=== PATIENT | female | born 1935 | race Caucasian/White ===

== ENCOUNTER → 2016-08-23 | Outpatient (CLI) | payer BC ==
[~2016-08-23] MED LIST: ACET-1311 PO; B-COTAB53 PO; CALCTAB5 PO; CHOL1000 PO; EFF75 PO; MULT-1018 PO; MULT-506 PO; PANT40TA PO; PRLSR20 PO; ZNTT/150 PO
--- NOTE | 2016-08-23 13:00 | DIAGNOSTIC IMAGING REPORT ---
PET/CT SKULL-THIGH CLINICAL HISTORY: SMALL CELL B-CELL LYMPHOMA COMPARISON STUDY: 02/07/2016 FINDINGS: The patient was injected with 15.6 mCi of F-18 labeled FDG. Following the standard induction phase, PET/CT scanning was performed from the skull base to the upper thigh region Within the neck, there are persistent prominent submandibular lymph nodes. The largest measures 11 mm in long axis. This demonstrates an SUV maximum of 1.8. Also evident are prominent bilateral jugulodigastric lymph nodes as well as prominent bilateral supraclavicular lymph nodes. These nodes in general have decreased slightly in size. They are not significantly FDG avid. There is a stable 13 mm right lobe thyroid nodule. Within the thorax, there has been interval decrease in the size of the multiple small axillary lymph nodes. These are not significantly FDG avid. There is been interval decrease in the size of the previous identified mediastinal and hilar lymph nodes. There is mild residual FDG activity with SUV maximum of 3.1 in the right paratracheal region, 3.5 in the right hilar region, and 3 in the left hilar region. There is underlying pulmonary emphysema. There is been interval resolution of previously identified rib activity. The abdomen, there is no evidence of pathologic hepatic or splenic activity. There is no pathologic adrenal gland activity. There is physiologic urinary tract and bowel activity. There is no pathologic nenita activity. There is been interval decrease in the size of the para-aortic and pelvic sidewall lymph nodes. These again are not FDG avid. There is a healing left pubic ramus fracture. IMPRESSION: 1. Slight interval decrease in the size of the previously identified cervical, mediastinal, hilar, axillary, retroperitoneal and pelvic lymphadenopathy. The nodes are again not significantly FDG avid with the exception of mild activity within mediastinal and hilar nodes. Electronically signed by: Karel Luna M.D. 08/23/2016 12:58 PM Dictated Date/Time: 08/23/2016 12:36 PM
== END | disposition home or self-care (01) ==
LOC: C.PET 09:54
PROVIDERS: ATTEND Nurse Practitioner
DX: C83.09 Small cell B-cell lymphoma, extranodal and solid organ sites (principal)

== ENCOUNTER → 2016-09-07 | Outpatient (CLI) | payer BC ==
[2016-09-07 13:33] LABS: ESTIMATED AVERAGE GLUCOSE 114 mg/dl; HA1C FLAG Normal (Normal)
--- NOTE | 2016-09-11 10:11 | CODING QUERY MEDICAL NECESSITY ---
SUPPORTING DIAGNOSIS NEEDED A supporting diagnosis is required for the test/procedure performed on this patient in order for us to be reimbursed by the patient's insurance. Please provide a supporting diagnosis for the following test/procedure listed below next to the test name along with your signature. *If there is no additional diagnosis for this patient that would support the following test/procedure please document that below next to the test/procedure. Test(s)/Procedure(s) that require a supporting diagnosis: DOS 09/07 * Hba1c DIAGNOSIS: Provider Signature: Date: Thank you Jayna Luis Health Information Management Once completed, please kindly fax back to [phone] For questions please call [phone]
== END | disposition home or self-care (01) ==
LOC: C.LAB 14:30
PROVIDERS: ATTEND Orthopaedic Surgery
DX: Z01.812 Encounter for preprocedural laboratory examination (principal)

== ENCOUNTER → 2016-11-09 | Outpatient (CLI) | payer BC, OTHER ==
[~2016-11-09] VITALS: Ht 157.5 cm; Wt 59.6 kg
[2016-11-09 11:22] VITALS: Ht 157.5 cm; Wt 59.6 kg
--- NOTE | 2016-11-09 11:55 | PAT Medication Instructions ---
Service Date Nov 09, 2016. Current Home Medication List Acetaminophen (Tylenol), 650 MG PO 1 time B-Complex W/ Folic Acid (B Complex), 1 TAB PO NOON Calcium (Caltrate), 600 MG PO NOON Cholecalciferol (Vitamin D3), 1 TAB PO BID Multiple Vitamins W/ Minerals (Hair Skin and Nails Formu), 1 TAB PO noon Multivitamin (Multivitamin), 1 TAB PO NOON Pantoprazole (Protonix), 40 MG PO QPM Ranitidine (Zantac), 150 MG PO BID Venlafaxine Hcl (Effexor), 75 MG PO QAM Medication Instructions For Your Scheduled Surgery - Hold the following medications 10 days prior to surgery: Multiple Vitamins W/ Minerals (Hair Skin and Nails Formu), 1 TAB PO noon - Hold the following medications the morning of surgery: Multivitamin (Multivitamin), 1 TAB PO NOON Cholecalciferol (Vitamin D3), 1 TAB PO BID B-Complex W/ Folic Acid (B Complex), 1 TAB PO NOON Calcium (Caltrate), 600 MG PO NOON - Take the following medications the morning of surgery with a sip of water: Venlafaxine Hcl (Effexor), 75 MG PO QAM Ranitidine (Zantac), 150 MG PO BID Acetaminophen (Tylenol), 650 MG PO 1 time (if needed) - Take the following medications as scheduled the night before surgery: Ranitidine (Zantac), 150 MG PO BID Pantoprazole (Protonix), 40 MG PO QPM Cholecalciferol (Vitamin D3), 1 TAB PO BID Acetaminophen (Tylenol), 650 MG PO 1 time If you have any questions please call us at [phone] or [phone] ( [place]) or [phone]
--- NOTE | 2016-11-09 12:35 | DIAGNOSTIC IMAGING REPORT ---
CHEST PREADMISSION(PA/LAT) CLINICAL HISTORY: Preoperative chest COMPARISON STUDY: 10/28/2015 FINDINGS: The cardiac and mediastinal contours remain stable. There is aortic tortuosity/ectasia. There are chronic perihilar interstitial changes. There is no acute parenchymal consolidation. There are multiple thoracic vertebral compression deformities with evidence of prior vertebroplasty.[ IMPRESSION: Chronic interstitial changes. No acute findings. Electronically signed by: Karel Luna M.D. 11/09/2016 12:33 PM Dictated Date/Time: 11/09/2016 12:32 PM
[2016-11-09 13:14] LABS: BASO % 0.3 %; BASO ABS # 0.02 K/uL (0-0.2); IG% 0.1 %; LYMPH % 17.7 %; LYMPH ABS # 1.39 K/uL (1.2-3.4); MEAN CELL VOLUME 64.8 fL (80-100); MEAN CORPUSCULAR HEMOGLOBIN 19.2 pg (25-34); MEAN CORPUSCULAR HGB CONC 29.7 g/dl (32-36); MEAN PLATELET VOLUME 9.4 fL (7.4-10.4); MONO % 5.7 %; NEUT % 75.2 %; PLATELET COUNT 356 K/uL (130-400); RED BLOOD COUNT 4.63 M/uL (4.2-5.4); WHITE BLOOD COUNT 7.85 K/uL (4.8-10.8)
[2016-11-09 13:20] LABS: URINE APPEARANCE CLEAR (CLEAR); URINE BILIRUBIN NEG (NEG); URINE COLOR YELLOW; URINE EPITHELIAL CELL AUTO 20-30 /lpf (0-5); URINE NITRITE NEG (NEG); URINE PH 5.5 (4.5-7.5); URINE SPECIFIC GRAVITY 1.015 (1.000-1.030); UROBILINOGEN NEG (NEG); ZZUR CULT IF INDIC CLEAN CATCH NO
[2016-11-09 13:27] LABS: INR 1.1 (0.9-1.1); PARTIAL THROMBOPLASTIN RATIO 1.1; PROTHROMBIN TIME (PATIENT) 11.5 SECONDS (9.0-12.0)
[2016-11-09 13:29] LABS: MANUAL MICROSCOPIC REQUIRED? NO; REVIEW REQ? NO
[2016-11-09 13:41] LABS: COMPLETE YES; HYPOCHROMIA PRESENT; MICROCYTOSIS PRESENT
[2016-11-09 13:45] LABS: ESTIMATED AVERAGE GLUCOSE 117 mg/dl; HA1C FLAG Normal (Normal)
[2016-11-09 13:48] LABS: BUN/CREATININE RATIO 35.8 (10-20); CREATININE 0.53 mg/dl (0.60-1.20); POTASSIUM 4.6 mmol/L (3.5-5.1)
--- NOTE | 2017-01-03 09:42 | CODING QUERY MEDICAL NECESSITY ---
SUPPORTING DIAGNOSIS NEEDED Dr. Montague, A supporting diagnosis is required for the test/procedure performed on this patient in order for us to be reimbursed by the patient's insurance. Please provide a supporting diagnosis for the following test/procedure listed below next to the test name along with your signature. *If there is no additional diagnosis for this patient that would support the following test/procedure please document that below next to the test/procedure. Test(s)/Procedure(s) that require a supporting diagnosis: * [id number] GLYCATED HEMOGLOBIN DIAGNOSIS: DATE OF SERVICE: 11/09/16 Provider Signature: Date: Thank you Ayaz Lawson [facility] Information Management Once completed, please kindly fax back to [phone] For questions please call [phone]
== END | disposition home or self-care (01) ==
LOC: C.LAB 08:00 → EDSTATUS 11-27 07:46
PROVIDERS: ATTEND Orthopaedic Surgery
DX: Z01.811 Encounter for preprocedural respiratory examination (principal); Z01.810 Encounter for preprocedural cardiovascular examination; Z01.812 Encounter for preprocedural laboratory examination; J84.9 Interstitial pulmonary disease, unspecified; E11.9 Type 2 diabetes mellitus without complications

== ENCOUNTER → 2018-02-26 | Outpatient (CLI) | payer OTHER ==
[~2018-02-26] MED LIST changes: +OPTIRAY 320 IV PRN; -PRLSR20 PO; +RANI150T85 PO; -ZNTT/150 PO
--- NOTE | 2018-02-26 13:51 | DIAGNOSTIC IMAGING REPORT ---
CT NECK WITH INTRAVENOUS CONTRAST HISTORY: LYMPHOMA TECHNIQUE: Multiaxial CT images of the neck performed following the use of intravenous contrast. COMPARISON STUDY: PET CT 08/23/2016. FINDINGS: The visualized brain parenchyma is unremarkable. Increase in size in a 7 mm subpleural nodule abutting the left major fissure within the left lung apex. A few additional linear densities within the lung apices are noted. No suspicious lytic or blastic osseous lesions. Mild mucosal thickening within maxillary sinuses. Stable small focal area of sclerosis within the left mandible. This measures 7 mm. Prevertebral soft tissues and the epiglottis are normal in thickness. A 1.3 cm right thyroid nodule. Extensive submandibular, submental, and bilateral cervical lymphadenopathy which has significantly progressed in the interval. Dominant right submandibular lymph node measures 3.6 x 1.9 cm. This previously measured 1.4 x 0.9 cm. There is also bilateral supraclavicular lymphadenopathy and upper right peritracheal lymphadenopathy. The airway remains patent. The parotid and submandibular glands enhance normally. The carotid arteries are widely patent. Mild to moderate focal narrowing within the proximal basilar artery. IMPRESSION: 1. Significant progression of the lymphadenopathy within the neck as described above. This is consistent with the patient's history of lymphoma. 2. A 1.3 cm right thyroid nodule. 3. Increase in size in the 7 mm subpleural nodule abutting the major fissure within the left lung apex. 4. Mild/moderate focal narrowing within the proximal basilar artery. Electronically signed by: Fredy Chandler M.D. 02/26/2018 1:49 PM Dictated Date/Time: 02/26/2018 1:41 PM
--- NOTE | 2018-02-26 13:59 | DIAGNOSTIC IMAGING REPORT ---
CT (CHEST) THORAX WITH CLINICAL HISTORY: 82 years-old Female presenting with LYMPHOMA, small lymphocytic lymphoma. TECHNIQUE: Multidetector CT imaging of the chest was performed after the administration of intravenous contrast. IV contrast: 93 mL of Optiray 320. A dose lowering technique was used consistent with the principles of ALARA (as low as reasonably achievable). COMPARISON: Chest x-ray from 11/09/2016. CT DOSE (mGy.cm): The estimated cumulative dose is 752.33 mGy.cm. FINDINGS: [employer] topogram: Kyphoplasty changes in the mid thoracic spine. Cholecystectomy clips. Total right hip arthroplasty. On soft tissue windows, heterogeneously enhancing 13 mm nodule in the right lobe of the thyroid. Pathologically enlarged lymph nodes in the bilateral axillae, supraclavicular fossae, mediastinum, and anjel. Additionally, partially visualized upper abdominal and retroperitoneal lymphadenopathy. Much of the mediastinal lymphadenopathy is confluent. Atherosclerosis of the aorta. Normal heart size. Coronary artery and aortic valve calcification. No pericardial or pleural effusion. On lung windows, paramediastinal bandlike opacities extending from the upper lobes to the lung bases, nonspecific and possibly post radiation change. Mosaic attenuation may suggest small airways disease. Perihilar predominant bronchial wall thickening. Respiratory motion artifact limits evaluation of lung parenchyma. Allowing for this, 3 mm solid nodule in the periphery of the right upper lobe (series 9 image 106). Adjacent more inferior similar appearing solid 3 mm nodule (series 9 image 117). Polygonal peripheral solid 6 mm nodule in the right upper lobe (series 9 image 56). Fissural solid 6 mm nodule at the left apex (series 9 image 66). Solid peripheral 3 mm nodule in the left lower lobe (series 9 image 139). Central airways patent. On bone windows, degenerative changes of the spine. Posttreatment changes of kyphoplasty. Several nondisplaced right rib fractures evident, which appear old. Extensive osteoporotic defects of the mid to lower thoracic spine with multilevel compression deformities. IMPRESSION: 1. Extensive lymphadenopathy involving the axillary, supraclavicular fossae, mediastinum, anjel, and upper abdomen. This is consistent with the known diagnosis of lymphoma. 2. Multiple solid pulmonary nodules measuring up to 6 mm. Attention on follow-up. Notably, Fleischner Society criteria do not apply in the setting of malignancy. These are felt unlikely to relate to lymphoproliferative disease. 3. Extensive compression deformities of the thoracic spine in the setting of osteoporosis. 4. Incidental 13 mm right thyroid lobe nodule. Electronically signed by: Randolph Carl M.D. 02/26/2018 1:58 PM Dictated Date/Time: 02/26/2018 1:51 PM
--- NOTE | 2018-02-26 14:00 | DIAGNOSTIC IMAGING REPORT ---
ABDOMEN AND PELVIS CT WITH IV AND ORAL CONTRAST HISTORY: Subsequent treatment strategy. Follow-up exam in a patient with history of lymphoma LYMPHOMA TECHNIQUE: Multiaxial CT images of the abdomen and pelvis were performed following the use of intravenous and oral contrast. A dose lowering technique was utilized adhering to the principles of ALARA. COMPARISON STUDY: CT soft tissue neck and CT chest of same day, PET CT 08/23/2016 and 02/07/2016. FINDINGS: Partially imaged mildly prominent lower axillary lymph nodes are seen bilaterally measuring up to 8 mm on the left, previously measuring up to 4 mm. Subsegmental bibasilar atelectasis/scarring. Lung bases otherwise appear clear. There is no pneumatosis or pneumoperitoneum identified. The imaged inferior cardiac chambers are moderately enlarged. Coronary arterial and aortic annular calcifications are noted. Prior cholecystectomy. Study is mildly motion degraded. Beam Hardening artifact from positioning of the patient's upper extremities also limits the study. Indeterminate 3 mm hypodense lesion of the posterior right hepatic lobe is unchanged suggesting benign etiology such as a hepatic cyst. Liver otherwise appears unremarkable without suspicious mass lesion or intrahepatic biliary ductal dilation. The spleen measures in the upper limits of normal at 13 cm. Moderate generalized pancreatic atrophy. Adrenal glands are unremarkable. Kidneys appear to be within normal limits. There appears be mild dilation about the bilateral ureters without hydronephrosis. Streak artifact from right hip arthroplasty limits evaluation of the distal ureters and pelvic structures. Bladder appears mildly distended. Uterus and adnexa appear unremarkable. Tortuosity with at least moderate mixed plaquing of the abdominal aorta. Bulky conglomerate retroperitoneal adenopathy has markedly progressed from comparison study. Iliac chain and pelvic sidewall adenopathy has also progressed. Index lymph nodes include right pelvic sidewall 2.6 x 1.2 cm lymph node on the right, image 280 series 10, previously measuring 1.9 x 0.7 cm. Enlarged left pelvic sidewall lymph node measures 3.7 x 1.4 cm on image 296 series 10, previously measuring 2.3 x 0.9 cm. Progressive bilateral inguinal chain lymph nodes are also present. Largest lymph node on the right measures 10 mm in short axis. Gastrohepatic and periportal conglomerate adenopathy also appreciated as are bulky enlarged lymph nodes throughout the mesentery. Mesenteric lymph nodes measure up to 2.4 x 1.7 cm on image 257 series 10, not definitively seen on comparison. Bulky retroperitoneal adenopathy the level of the kidneys measures up to 3.0 x 6.5 cm on image 1:30 series 10, previously measuring up to 2.4 x 1.8 cm. No bowel obstruction or focal bowel wall thickening identified. Suggested constipation. Mild generalized body wall edema. Right hip arthroplasty. Demineralized appearance of the bones. Remote healed fractures about the left hemipelvis. There are healing subacute appearing fractures about the right hemipelvis including the superior and inferior pubic rami and right ischium with additional subacute healing fracture about the right acetabulum anteriorly. Chronic appearing left and subacute appearing right sacral sufficiency fractures. Degenerative changes about the bilateral SI joints. Subacute to chronic appearing multiple rib fractures on the right. Multiple age-indeterminate compression deformities about the spine without retropulsion identified. Notably, linear sclerosis involving the mid vertebral body at L4 is suspicious for subacute or acute compression deformity of approximately 20%. Kyphoplasty changes are noted at T9 with extension of the cement material into the T9-T10 intervertebral disc space. Levoscoliosis about the lumbar spine. IMPRESSION: 1. Findings compatible with progressive disease with increased size of bulky and conglomerate lymph nodes about the lower chest, abdomen and pelvis including lower axillary chain, periportal, gastrohepatic, mesenteric, retroperitoneal, iliac chain, pelvic sidewall and inguinal adenopathy. 2. Spleen measures within the upper limits of normal at 13 cm, possibly also reflecting lymphomatous involvement. 3. Subacute healing pelvic fractures of the right hemipelvis including superior and inferior pubic rami and right ischial fractures with additional subacute healing fracture of the right acetabulum. 4. Chronic left and subacute appearing right sacral insufficiency fractures. 5. Additional findings as above. Electronically signed by: Julius Torres M.D. 02/26/2018 1:59 PM Dictated Date/Time: 02/26/2018 1:41 PM
== END | disposition home or self-care (01) ==
LOC: C.CTS 12:37
PROVIDERS: ATTEND Internal Medicine Hematology & Oncology
DX: C83.09 Small cell B-cell lymphoma, extranodal and solid organ sites (principal); R91.8 Other nonspecific abnormal finding of lung field; E04.1 Nontoxic single thyroid nodule

== ENCOUNTER → 2018-03-08 | Outpatient (CLI) | payer OTHER ==
[~2018-03-08] MED LIST changes: -OPTIRAY 320 IV PRN
[2018-03-08 10:33] LABS: HEMATOCRIT 40.2 % (37-47); HEMOGLOBIN 12.9 g/dL (12.0-16.0); MEAN CELL VOLUME 88.4 fL (80-100); MEAN CORPUSCULAR HEMOGLOBIN 28.4 pg (25-34); MEAN CORPUSCULAR HGB CONC 32.1 g/dl (32-36); MEAN PLATELET VOLUME 10.2 fL (7.4-10.4); PLATELET COUNT 182 K/uL (130-400); RED CELL DISTRIBUTION WIDTH CV 14.2 % (11.5-14.5); RED CELL DISTRIBUTION WIDTH SD 45.7 fL (36.4-46.3); WHITE BLOOD COUNT 11.54 K/uL (4.8-10.8)
[2018-03-08 11:03] LABS: ALBUMIN 3.7 gm/dl (3.4-5.0); ALKALINE PHOSPHATASE 142 U/L (45-117); ALT/SGPT 20 U/L (12-78); AST/SGOT 19 U/L (15-37); BLOOD UREA NITROGEN 21 mg/dl (7-18); CALCIUM 8.5 mg/dl (8.5-10.1); CARBON DIOXIDE 30 mmol/L (21-32); CREATININE 0.63 mg/dl (0.60-1.20); GLUCOSE 78 mg/dl (70-99); POTASSIUM 4.7 mmol/L (3.5-5.1); SODIUM 140 mmol/L (136-145); TOTAL PROTEIN 6.2 gm/dl (6.4-8.2)
[2018-03-08 11:53] LABS: BASO % 0.3 %; BASO ABS # 0.03 K/uL (0-0.2); EOS % 0.7 %; EOS ABS # 0.08 K/uL (0-0.5); IG# 0.04 K/uL (0.00-0.02); LYMPH % 55.6 %; LYMPH ABS # 6.42 K/uL (1.2-3.4); MONO % 4.2 %; MONO ABS # 0.48 K/uL (0.11-0.59); NEUT % 38.9 %; NEUT ABS # 4.49 K/uL (1.4-6.5)
== END | disposition home or self-care (01) ==
LOC: C.LABSPEC 10:23
PROVIDERS: ATTEND Internal Medicine Hematology & Oncology
DX: C83.09 Small cell B-cell lymphoma, extranodal and solid organ sites (principal)